=== PATIENT | male | born 1990 | race Two or more races ===

== ENCOUNTER 2020-06-22 22:52 | Emergency (ER) | payer OTHER ==
[~2020-06-22] VITALS: Ht 195.6 cm; Wt 162.8 kg
[2020-06-22 22:59] VITALS: BP 136/79
--- NOTE | 2020-06-22 23:23 | NUR ---
PT IN NAD, ERP TO BEDSIDE. PT DENIES CLOSE CONTACT TO ANY ONE WHO IS SICK, PT HAS NO COMPLAINTS OF SYMPTOMS. PT UPDATED ON POC.
== END 2020-06-22 23:25 | disposition home or self-care (01) ==
LOC: ED 23:19
DX: R50.9 Fever, unspecified (principal)
CPT/HCPCS: 99281

== ENCOUNTER 2020-12-31 03:36 | Emergency (ER) | payer OTHER ==
[~2020-12-31] VITALS: Ht 195.6 cm; Wt 165.0 kg
[2020-12-31 05:06] VITALS: BP 135/66
== END 2020-12-31 06:03 | disposition home or self-care (01) ==
LOC: ED 05:30
DX: S22.31XA Fracture of one rib, right side, initial encounter for closed fracture (principal); F17.200 Nicotine dependence, unspecified, uncomplicated; X58.XXXA Exposure to other specified factors, initial encounter; Y93.89 Activity, other specified; Y92.69 Other specified industrial and construction area as the place of occurrence of the external cause; Y99.8 Other external cause status
CPT/HCPCS: 99283